=== PATIENT | female | born 1980 | race Caucasian/White ===

== ENCOUNTER 2018-03-03 10:04 | Outpatient (CLI) | payer OTHER ==
--- NOTE | 2018-03-03 10:28 | RAD ---
TWO VIEWS CHEST: Comparison: 03-21-15 Indication: Cough. FINDINGS: Lungs are clear. Cardiac silhouette is normal in size. No effusion or pneumothorax. IMPRESSION: No focal consolidation. POS: [facility]
== END 2018-03-03 10:05 | disposition home or self-care (01) ==
LOC: RAD-FRANK 10:04
PROVIDERS: ATTEND Nurse Practitioner Family
DX: R05 Cough (principal)
CPT/HCPCS: 71046

== ENCOUNTER 2018-05-31 08:48 | Outpatient (CLI) | payer OTHER ==
--- NOTE | 2018-05-31 10:09 | RAD ---
TWO VIEWS OF THE CHEST: DATE: 05/31/2018. COMPARISON: 03/03/2018. History Chest pain. FINDINGS: There is no pneumothorax, pleural fluid, focal consolidation, or alveolar edema. Clips in right uppe r quadrant suggest prior cholecystectomy. IMPRESSION: No acute findings. POS: [facility]
== END 2018-05-31 08:49 | disposition home or self-care (01) ==
LOC: RAD-FRANK 08:48
PROVIDERS: ATTEND Nurse Practitioner Family
DX: R07.9 Chest pain, unspecified (principal)
CPT/HCPCS: 71046; 80053; 80061; 83036; 84443; 85025; 86140; 86376; 86800

== ENCOUNTER 2018-06-15 08:54 | Outpatient (CLI) | payer OTHER ==
--- NOTE | 2018-06-15 10:24 | RAD ---
CHEST TWO VIEWS: HISTORY: Palpitations. Chest pain. COMPARISON: 05/31/2018 FINDINGS: Exam is limited due to overlying artifactual lines. No air space consolidation, pneumothorax, or eff usion. No acute osseous abnormality. The cardiac silhouette and mediastinal contour is within alize l limits. IMPRESSION: No acute intrathoracic abnormality. POS: [facility]
== END 2018-06-15 08:55 | disposition home or self-care (01) ==
LOC: RAD-FRANK 08:54
PROVIDERS: ATTEND Nurse Practitioner Family
DX: R00.2 Palpitations (principal)
CPT/HCPCS: 71046; 82728; 83540; 83550; 85046; 85379

== ENCOUNTER 2020-05-13 19:29 | Emergency (ER) | payer OTHER ==
[2020-05-13 21:23] LABS: #Basophils 0.1 thou/uL (0.0-0.2); #Eosinphils 0.5 thou/uL (0.0-0.7); #Lymphocytes 2.6 thou/uL (1.20-3.40); #Monocytes 0.7 thou/uL (0.11-0.59); #Neutrophils 8.8 thou/uL (1.40-6.50); %Basophils 0.5 % (0.0-1.0); %Eosinophils 3.9 % (0.0-10.0); %Lymphocytes 20.5 % (21.0-51.0); %Monocytes 5.2 % (0.0-10.0); %Neutrophils 69.9 % (42.0-75.0); Hemoglobin 15.2 g/dL (12.0-16.0); Mean Corpuscular HGB CONC 34.8 g/dL (32.0-36.0); Mean Corpuscular Hemoglobin 30.4 pg (27.0-31.0); Mean Corpuscular Volume 87.4 fL (78.0-98.0); Platelet Count 223 thou/uL (130-400); RBC Distribution Width 11.4 % (11.5-14.5); White Blood Cell (WBC) Count 12.6 thou/uL (4.8-10.8)
[2020-05-13 21:41] LABS: ALT (SGPT) 20 U/L (8-55); AST (SGOT) 16 U/L (5-34); Alkaline Phosphatase 86 U/L (40-110); Anion Gap 15 mmol/L (10-20); BUN (Urea Nitrogen) 13 mg/dL (7.0-18.7); Bilirubin, Total 0.2 mg/dL (0.2-1.2); Calc. Creatinine Clearance 0 mL/min (70-130); Calcium 8.9 mg/dL (7.8-10.44); Carbon Dioxide 24 mmol/L (22-29); Chloride 103 mmol/L (98-107); Globulin 3.6 g/dL (2.4-3.5); Glucose 101 mg/dL (70-105); Potassium 3.9 mmol/L (3.5-5.1); Protein, Total 7.6 g/dL (6.0-8.3); Sodium 138 mmol/L (136-145)
[2020-05-13 21:47] LABS: BHCG - Serum Negative (NEGATIVE); Pregs Control Background? CLEAR/WHITE (CLR/WHITE); Pregs Control Bar Appear? YES (CONTROL BAR)
--- NOTE | 2020-05-13 22:09 | RAD ---
XR Chest 1 View Portable HISTORY: Dyspnea,Covid 19 Positive COMPARISON: 06/15/2018 FINDINGS: The heart size is normal. The lungs are well expanded without focal areas of consolidation, pneumothorax or pleural effusions. IMPRESSION: No radiographic evidence of acute cardiopulmonary process.
== END 2020-05-14 00:10 | disposition home or self-care (01) ==
LOC: ERS 19:29
DX: L30.9 Dermatitis, unspecified (principal); U07.1 COVID-19; E03.9 Hypothyroidism, unspecified; G47.30 Sleep apnea, unspecified
CPT/HCPCS: 36415; 71045; 80053; 84703; 85025

== ENCOUNTER 2020-06-14 19:28 | Emergency (ER) | payer OTHER, SELFPAY ==
[2020-06-14] MEDS ORDERED: Ondansetron ODT 4 MG TAB ONE (20:17)
[2020-06-14] MEDS ORDERED: Ondansetron PF 4 MG/2 ML Vial ONE (20:17)
[2020-06-14] MEDS ORDERED: Morphine 4 MG/ML VIAL ONE ×2 (20:17→20:54)
--- NOTE | 2020-06-14 20:34 | RAD ---
LEFT SHOULDER: 06/14/20 One view. INDICATIONS: Fall with injury. Limited exam performed. There is an anterior shoulder dislocation at the left shoulder. No fracture i dentified on this single projection. IMPRESSION: Anterior shoulder dislocation. POS: [facility]
[2020-06-14] MEDS ORDERED: Ketorolac Tromethamine 30 MG/ML VIAL ONE (20:53)
[2020-06-14] MEDS ORDERED: PROPOFOL 20 ML ONE (21:06)
--- NOTE | 2020-06-14 21:36 | RAD ---
Left shoulder 2 views HISTORY: Shoulder dislocation. COMPARISON: Earlier exam on the same date. FINDINGS: Glenohumeral alignment is now normal. Acromioclavicular alignment maintained. No fractures evident. IMPRESSION : Reduction of the left shoulder dislocation. No new abnormalities.
== END 2020-06-14 21:35 | disposition home or self-care (01) ==
LOC: ERS 19:28
DX: S43.005A Unspecified dislocation of left shoulder joint, initial encounter (principal); E03.9 Hypothyroidism, unspecified; Z79.899 Other long term (current) drug therapy; W01.0XXA Fall on same level from slipping, tripping and stumbling without subsequent striking against object, initial encounter
CPT/HCPCS: 23650; 96372; 96374; 96375; 99152; J1885; J2270; J2405; J2704; Q0162

== ENCOUNTER 2021-02-22 09:59 | Outpatient (CLI) | payer OTHER | END 2021-02-22 10:00 | disposition home or self-care (01) | LOC: RAD-FRANK 09:59 | PROVIDERS: ATTEND Nurse Practitioner Family | DX: M79.671 Pain in right foot (principal); M25.512 Pain in left shoulder ==

== ENCOUNTER 2024-04-01 08:12 | Outpatient (CLI) | payer BC ==
[2024-04-01 09:27] LABS: #Basophils 0.05 10x3/uL (0.0-0.2); %Basophils 0.8 % (0.0-1.0); %Eosinophils 4.9 % (0.0-10.0); %Lymphocytes 26.9 % (21.0-51.0); %Monocytes 8.4 % (0.0-10.0); %Neutrophils 58.8 % (42.0-75.0); Hematocrit 43.6 % (36.0-47.0); Hemoglobin 14.8 g/dL (12.0-16.0); Mean Corpuscular HGB CONC 33.9 g/dL (32.0-36.0); Mean Corpuscular Hemoglobin 29.5 pg (27.0-31.0); Mean Corpuscular Volume 86.9 fL (78.0-98.0); Mean Platelet Volume 10.7 fL (7.4-10.4); Platelet Count 250 10x3/uL (130-400); RBC Distribution Width 12.4 % (11.5-14.5); Red Blood Cell (RBC) Count 5.02 mill/uL (4.20-5.40)
[2024-04-01 09:56] LABS: BHCG - Serum Negative (NEGATIVE); Pregs Control Background? CLEAR/WHITE (CLR/WHITE); Pregs Control Bar Appear? YES (CONTROL BAR)
== END 2024-04-01 08:13 | disposition home or self-care (01) ==
LOC: LABBT 08:12
PROVIDERS: ATTEND Orthopaedic Surgery Hand Surgery
DX: Z01.812 Encounter for preprocedural laboratory examination (principal); G56.03 Carpal tunnel syndrome, bilateral upper limbs
CPT/HCPCS: 84703; 85025

== ENCOUNTER 2024-04-05 08:38 | Day surgery (SDC) | payer BC ==
[2024-04-01 08:24] VITALS: BMI 39.9
[2024-04-05] MEDS ORDERED: PROPOFOL 20 ML ONE (09:01)
[2024-04-05] MEDS ORDERED: fentaNYL PF 100 MCG/2 ML SYRINGE ONE (09:01)
[2024-04-05] MEDS ORDERED: Midazolam HCl 2 mg/2 ml Vial ONE (09:01)
[2024-04-05] MEDS ORDERED: Lidocaine 1% PF 5 ML VIAL ONE (09:01)
[2024-04-05] MEDS ORDERED: Ondansetron PF 4 MG/2 ML Vial ONE (09:02)
[2024-04-05] MEDS ORDERED: Dexamethasone 4 mg/ml Vial ONE (09:02)
[2024-04-05] MEDS ORDERED: Bacitracin Zinc Ointment 30 gm TUBE ONE (09:47)
[2024-04-05] MEDS ORDERED: Bupivacaine PF 0.5% 30 ML VIAL ONE (09:47)
[2024-04-05] MEDS ORDERED: Betamet Acet/Betamet Na Ph 30 MG/5 ML VIAL ONE (09:47)
[2024-04-05] MEDS ORDERED: CEFAZOLIN 2 GM VIAL ONE (10:27)
[2024-04-05] MEDS ORDERED: Ketorolac Tromethamine 30 MG (1 mL) VIAL ONE ×2 (12:38→12:43)
[2024-04-05] MEDS ORDERED: Promethazine HCl 25 MG/ML VIAL ONE (13:22)
== END 2024-04-05 14:48 | disposition home or self-care (01) ==
LOC: SDC 08:38
PROVIDERS: ATTEND Orthopaedic Surgery Hand Surgery
PROC: 01N50ZZ Release Median Nerve, Open Approach (ICD-10-PCS; principal; 2024-04-05)
DX: G56.03 Carpal tunnel syndrome, bilateral upper limbs (principal); G47.33 Obstructive sleep apnea (adult) (pediatric); G43.909 Migraine, unspecified, not intractable, without status migrainosus; E03.9 Hypothyroidism, unspecified; E66.9 Obesity, unspecified; F32.A Depression, unspecified; F41.9 Anxiety disorder, unspecified; Z68.39 Body mass index [BMI] 39.0-39.9, adult; Z90.49 Acquired absence of other specified parts of digestive tract; Z91.048 Other nonmedicinal substance allergy status; Z88.8 Allergy status to other drugs, medicaments and biological substances; Z79.890 Hormone replacement therapy; Z79.899 Other long term (current) drug therapy
CPT/HCPCS: A6223; J0665; J0702; J1100; J1885; J2250; J2405; J2550; J2704